=== PATIENT | male | born 1985 | race Caucasian/White ===

== ENCOUNTER → 2022-08-13 15:38 | Outpatient (CLI) | payer BC, SELFPAY ==
--- NOTE | ~2022-08-13 | XR_ITS ---
XR chest 2V DATE: 08/13/2022 15:51 INDICATION: Shortness of breath TECHNIQUE: 2 views COMPARISON: None FINDINGS: Normal heart size. Moderate bilateral hyperinflation. No pulmonary infiltrate or consolidat ion, pleural effusion or pulmonary vascular congestion or pneumothorax is detected. Included skeletal structures are unremarkable. IMPRESSION: Moderate bilateral hyperinflation. No active cardiopulmonary disease Reviewed, dictated and finalized at location B. [facility] [employer] IMPRESSION: Moderate bilateral hyperinflation. No active cardiopulmonary diseas e
== END ==
PROVIDERS: PCP Emergency Medicine; Visit Provider Emergency Medicine
DX: R06.02 Shortness of breath (principal); R91.8 Other nonspecific abnormal finding of lung field
CPT/HCPCS: 71046

== ENCOUNTER 2022-08-20 14:24 | Outpatient (CLI) | payer BC, SELFPAY ==
--- NOTE | 2022-08-21 08:58 | WPDPFTINT ---
PFT Procedure Performed PFT Procedure Performed Spirometry with Pre/Post Bronchodilator Plethysmography (Lung Vol) Diffusing Cap (DLCO) Flow Vol Loop PFT Interpretation Lung volumes were measured with the body plethysmography method. Lung volumes are unremarkable. Spirometry showed normal expiratory flow rates and a normal FEV1 to FVC ratio 75%. Following administration of a bronchodilator there was no significant increase in expiratory flow rates. Lung diffusion capacity is within the normal range at 102% predicted. The flow-volume loop is unremarkable. Impression: Spirometry, lung volumes, and lung diffusion capacity all within the normal range.
== END 2022-08-20 14:25 | disposition home or self-care (01) ==
PROVIDERS: PCP Emergency Medicine; Visit Provider Emergency Medicine
DX: F17.200 Nicotine dependence, unspecified, uncomplicated (principal); R05.9 Cough, unspecified; R06.02 Shortness of breath
CPT/HCPCS: 94060; 94726; 94729